=== PATIENT | female | born 1995 | race Caucasian/White ===

== ENCOUNTER 2022-10-16 16:50 | Emergency (ER) | payer OTHER, SELFPAY ==
[2022-10-16 17:00] VITALS: BP 134/80; BP 136/80; PULSE 100; PULSE 82; RESP 16; TEMP 36.6; O2SAT 100; O2SAT 98; BMI 27.4
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
[2022-10-16 17:59] LABS: MANUAL DIFF FLAG NO
[2022-10-16 18:03] LABS: Basophils Percent Auto 0.4 % (0-2); Eosinophils Absolute Auto 0.1 X10*3/uL (0.0-0.4); Eosinophils Percent Auto 1.2 % (0-4); Hematocrit 47.7 % (37.0-47.0); Hemoglobin 15.8 g/dl (12.0-16.0); Imm Gran Abs Auto 0.01 X10*3/uL (0.00-0.03); Imm Gran Pct Auto 0.1 % (0.0-0.4); Lymphocytes Absolute Auto 1.6 X10*3/uL (1.2-4.9); Lymphocytes Percent Auto 24.2 % (20-40); Mean Corpuscular HGB Conc 33.1 g/dl (31.0-35.0); Mean Corpuscular Hemoglobin 28.5 pg (27.0-33.0); Mean Corpuscular Volume 85.9 fL (80.0-98.0); Mean Platelet Volume 8.6 fL (9.4-12.3); Monocytes Absolute Auto 0.5 X10*3/uL (0.1-1.2); Monocytes Percent Auto 7.8 % (2-11); Neutrophils Absolute Auto 4.4 x10*3/uL (2.0-8.3); Neutrophils Percent Auto 66.3 % (45-73); Platelet Count 254 X10*3/uL (160-400); Red Blood Count 5.55 X10*6/uL (4.20-5.50); Red Cell Distribution Width 11.5 % (11.0-16.0); White Blood Count 6.7 X10*3/uL (4.8-10.8)
[2022-10-16 18:17] LABS: Alanine Aminotransferase 31 U/L (0-31); Albumin Level 4.9 g/dL (3.5-5.0); Alkaline Phosphatase 98 U/L (39-117); Anion Gap 12 (12-20); Aspartate Amino Transferase 26 U/L (5-31); Bilirubin Direct 0.2 mg/dL (0.0-0.5); Bilirubin Total 0.5 mg/dL (0.0-1.0); Blood Urea Nitrogen 12 mg/dL (9-16); Calcium 10.1 mg/dL (8.4-10.2); Carbon Dioxide 30 mmol/L (22-29); Chloride 102 mmol/L (96-108); Creatinine Clr Calc Pharmacy 97.6; Estimated Glomerular Filt Rate > 60; Glucose Random 104 mg/dL (60-115); Magnesium 2.4 mg/dL (1.6-2.6); Potassium 4.4 mmol/L (3.3-5.1); Sodium 140 mmol/L (135-145); Total Protein 7.7 g/dL (6.5-8.0)
== END 2022-10-16 18:29 | disposition home or self-care (01) ==
PROVIDERS: Physician Assistant; Emergency Provider Internal Medicine
DX: F41.1 Generalized anxiety disorder (principal); F43.0 Acute stress reaction; R51.9 Headache, unspecified; Z79.899 Other long term (current) drug therapy
CPT/HCPCS: 36415; 80048; 80076; 83735; 85025; 99282; 99283

== ENCOUNTER 2023-12-17 18:49 | Emergency (ER) | payer OTHER, SELFPAY ==
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
--- NOTE | 2023-12-17 19:07 | MHC.EDTECH ---
Patient ekg taken and was read by Provider .
== END 2023-12-17 20:43 | disposition left against medical advice (07) ==
PROVIDERS: Emergency Provider Emergency Medicine
DX: Z04.1 Encounter for examination and observation following transport accident (principal); R07.9 Chest pain, unspecified
CPT/HCPCS: 93005; 99282; 99283

== ENCOUNTER → 2023-12-17 18:56 | Outpatient (BNV) | payer OTHER, SELFPAY | PROVIDERS: Emergency Provider Emergency Medicine; Visit Provider Internal Medicine Cardiovascular Disease | DX: R07.9 Chest pain, unspecified (principal) | CPT/HCPCS: 93010 ==

== ENCOUNTER 2024-02-03 03:40 | Emergency (ER) | payer OTHER, SELFPAY | END 2024-02-03 06:22 | disposition left against medical advice (07) | LOC: HO.ED 04:16 | PROVIDERS: Emergency Provider Emergency Medicine; PCP Internal Medicine | DX: R68.89 Other general symptoms and signs (principal) ==

== ENCOUNTER 2024-02-09 03:31 | Emergency (ER) | payer OTHER, SELFPAY | END 2024-02-09 04:10 | disposition left against medical advice (07) | PROVIDERS: Emergency Provider Emergency Medicine | DX: Z53.21 Procedure and treatment not carried out due to patient leaving prior to being seen by health care provider (principal); G47.00 Insomnia, unspecified ==

== ENCOUNTER 2024-06-02 22:48 | Inpatient (IN) | payer OTHER, SELFPAY ==
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
[2024-06-02 22:50] VITALS: BMI 24.8
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
--- NOTE | 2024-06-03 06:17 | PC.NURSE ---
Patient slept through the night, no distress observed/reported, patient refused to provide urine sample and blood draw due to her paranoia, patient was sectioned by PD, pending care team assessment, will continue to monitor
--- NOTE | 2024-06-03 07:11 | PC.NURSE ---
Assumed care of patient at 0645, patient appears to be sleeping, no apparent distress noted. Per night RN, patient non-cooperative with record changer assembler and treatment process. Pending lab work and CARE team evaluation.
--- NOTE | 2024-06-03 08:11 | PC.NURSE ---
Patient refusing blood work and urine sample, stating that she needs to go home and we need to lift the 12 hour hold
--- NOTE | 2024-06-03 08:38 | HE.PHANOTE ---
RE: METHADONE DOSING Last dose of methadone 28 mg was given on 06/01/24@1121 at [facility] [address] [phone] per RUPALI Ocampo.
[2024-06-03 08:59] LABS: Appearance Urine Turbid; Color Urine Dark Yellow; Glucose Urine UA Negative (Negative); Leukocyte Esterase Urine Small (1+) (Negative); Nitrite Urine Negative (Negative); Specific Gravity - Urine >= 1.030 (1.005-1.025); UMIC TRIGGER UACC YES; Urine Blood Negative (Negative); Urine Ketones 15 mg/dL (Negative); Urine Protein 30 (1+) mg/dL (Neg-Trace)
[2024-06-03 09:06] LABS: Bacteria Urine 4+ (None Seen); Calcium Oxalate Crystals Urine Present; RBC Urine 0-2 /HPF (0-2); Squamous Epithelial Cell Urine >20 /HPF (0-2); UACC Culture Trigger YES; WBC Urine 21-50 /HPF (0-5)
[2024-06-03 09:14] LABS: Amphetamine Screen Urine Not Detected (Not Detect); Barbiturates, Urine Not Detected (Not Detect); Benzodiazepines Screen Urine Not Detected (Not Detect); Buprenorphine Scr Not Detected (Not Detect); Cannabinoid Screen Urine Not Detected (Not Detect); Cocaine Screen Urine POSITIVE (Not Detect); Fentanyl, urine Not Detected (Not Detect); Methadone Screen, Urine Positive (Not Detect); Opiate Screen Urine Not Detected (Not Detect); Oxycodone Screen Urine Not Detected (Not Detect); Phencyclidine Screen Urine Not Detected (Not Detect)
[2024-06-03 09:33] LABS: MANUAL DIFF FLAG NO
[2024-06-03 09:34] LABS: Basophils Percent Auto 0.4 % (0-2); Eosinophils Absolute Auto 0.1 X10*3/uL (0.0-0.4); Eosinophils Percent Auto 1.7 % (0-4); Hematocrit 43.5 % (37.0-47.0); Imm Gran Abs Auto 0.02 X10*3/uL (0.00-0.03); Imm Gran Pct Auto 0.3 % (0.0-0.4); Lymphocytes Absolute Auto 1.9 X10*3/uL (1.2-4.9); Lymphocytes Percent Auto 27.5 % (20-40); Mean Corpuscular HGB Conc 34.5 g/dl (31.0-35.0); Mean Corpuscular Hemoglobin 29.9 pg (27.0-33.0); Mean Corpuscular Volume 86.8 fL (80.0-98.0); Mean Platelet Volume 8.7 fL (9.4-12.3); Monocytes Absolute Auto 0.6 X10*3/uL (0.1-1.2); Neutrophils Absolute Auto 4.2 x10*3/uL (2.0-8.3); Neutrophils Percent Auto 61.1 % (45-73); Platelet Count 273 X10*3/uL (160-400); Red Blood Count 5.01 X10*6/uL (4.20-5.50); Red Cell Distribution Width 11.9 % (11.0-16.0); White Blood Count 6.9 X10*3/uL (4.8-10.8)
--- NOTE | 2024-06-03 09:51 | PC.NURSE ---
This RN spoke with mom who is encouraging patient to get CT scan. Mom aware that patient has been refusing treatment. Mom also aware that patient will be going inpatient
[2024-06-03 09:56] LABS: Acetaminophen LAB < 3 mcg/mL (<30); Salicylate < 5.0 mg/dL (15-30)
[2024-06-03 10:12] LABS: Alanine Aminotransferase 18 U/L (0-31); Albumin Level 4.8 g/dL (3.5-5.0); Alkaline Phosphatase 74 U/L (39-117); Anion Gap 10 (12-20); Aspartate Amino Transferase 26 U/L (5-31); Bilirubin Direct 0.3 mg/dL (0.0-0.5); Bilirubin Total 0.7 mg/dL (0.0-1.0); Blood Urea Nitrogen 12 mg/dL (9-16); Calcium 9.8 mg/dL (8.4-10.2); Carbon Dioxide 30 mmol/L (22-29); Chloride 106 mmol/L (96-108); Creatinine Clr Calc Pharmacy 90.3; Estimated Glomerular Filt Rate > 60; Ethanol < 10 mg/dL; Glucose Random 94 mg/dL (60-115); Magnesium 2.6 mg/dL (1.6-2.6); Potassium 3.5 mmol/L (3.3-5.1); Sodium 142 mmol/L (135-145); Total Protein 7.5 g/dL (6.5-8.0)
[2024-06-03 10:24] LABS: HCG Quantitative < 2 mIU/mL; TSH reflex Free T4 0.49 uIU/mL (0.32-4.0)
[2024-06-03] MEDS: methADONE HCl 20 MG/2 ML ORAL.CONC 28 MG PO (10:49)
[2024-06-03] MEDS: Nicotine 21 MG PATCH.TD24 TRANSDERMA (10:49)
--- NOTE | 2024-06-03 11:28 | ECG_ITS ---
Test Reason : clearence Blood Pressure : / mmHG Vent. Rate : 061 BPM Atrial Rate : 061 BPM P-R Int : 156 ms QRS Dur : 084 ms QT Int : 446 ms P-R-T Axes : 050 079 053 degrees QTc Int : 448 ms Normal sinus rhythm Normal ECG When compared with ECG of 17-DEC-2023 19:04, Nonspecific T wave abnormality no longer evident in Anterior leads Referred By: Kiara Nunes Electronically Signed By:Gibran Toribio
--- NOTE | 2024-06-03 11:30 | PC.NURSE ---
Inpatient RN called pod, asked if EKG had been done. Per report from previous RN Mela, patient had been refusing EKG. Inpatient RN made aware, order placed for staff to obtain once patient consents.
--- NOTE | 2024-06-03 13:12 | PC.NURSE ---
RN to RN phone report given to Sheryl, all questions answered, patient to be transported upstairs with security.
[2024-06-03 13:25] VITALS: BP 117/73; PULSE 67; RESP 14; TEMP 36.9; O2SAT 97
[2024-06-03 13:30] VITALS: BMI 22.8
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
[2024-06-03 20:00] VITALS: BP 116/70; PULSE 59; RESP 16; TEMP 36.5; O2SAT 99
[2024-06-04] MEDS: methADONE HCl 20 MG/2 ML ORAL.CONC 28 MG PO (07:39)
[2024-06-04 07:54] VITALS: BP 127/73; PULSE 65; RESP 16; TEMP 36; O2SAT 97
[2024-06-04 08:35] LABS: Estimated Average Glucose 91 mg/dL; Hemoglobin A1c % 4.8 % (<6.0)
[2024-06-04 08:45] LABS: Cholesterol 110 mg/dL (<200); HDL Cholesterol 45 mg/dL (>40); LDL Cholesterol Calculated 55 mg/dL (<100); Magnesium 2.5 mg/dL (1.6-2.6); Triglycerides 54 mg/dL (<150)
[2024-06-04 09:02] LABS: Free T4 (Free Thyroxine) 1.09 ng/dL (0.71-1.85)
[2024-06-04 09:11] LABS: Folate 11.8 ng/mL (> or = 4.0); Vitamin B12 513 pg/mL (200-900)
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
[2024-06-04 20:00] VITALS: BP 121/73; PULSE 68; RESP 16; TEMP 36.7; O2SAT 97
[2024-06-05] MEDS: methADONE HCl 20 MG/2 ML ORAL.CONC 28 MG PO (07:44)
[2024-06-05 08:00] VITALS: BP 145/70; PULSE 80; RESP 16; TEMP 36.4; O2SAT 98
--- NOTE | 2024-06-05 08:40 | HO.PSYCHPN ---
Subjective Subjective Date of Service: 06/05/24 Reason For Visit: Psychosis NOS Subjective Notes: Coe Warning, Conditional Voluntary and 3 Day Interim History: Met with patient. Discussed with nursing. Patient did visit with father today. Very paranoid and guarded. Limited engagement with automobile and property underwriter. Did want to sign a three-day notice. However again ambivalent, but verbally express this clearly. Still does not want medications. Medication Compliance: No Side effects from medications: No Attending Groups: No Review of Systems Acute medical concerns: No Review of Systems Review of Systems Unremarkable Mental Status Exam Mental Status Exam Narrative: hospital clothing. Very guarded and suspicious. Flat affect. Denies depression, SI, HI, hallucinations or feeling paranoid. Diagnostics Vital Signs (24Hr): Vital Signs - 24 hr 06/04/24 20:00 06/05/24 08:00 Temperature 98.0 F 97.5 F Pulse Rate 68 80 Respiratory Rate 16 16 Blood Pressure 121/73 145/70 H Pulse Oximetry 97 98 Oxygen Delivery Method Room Air Room Air BMI result Body Mass Index 22.8 Labs 06/03/24 09:07 06/03/24 09:07 Labs: Laboratory Results - last 48 hr 06/03/24 06/03/24 06/04/24 08:50 09:07 07:53 WBC 6.9 RBC 5.01 Hgb 15.0 Hct 43.5 MCV 86.8 MCH 29.9 MCHC 34.5 RDW 11.9 Plt Count 273 MPV 8.7 L Immature Gran % (Auto) 0.3 Neut % (Auto) 61.1 Lymph % (Auto) 27.5 [place] % (Auto) 9.0 Eos % (Auto) 1.7 Baso % (Auto) 0.4 Lymph # (Auto) 1.9 [place] # (Auto) 0.6 Eos # (Auto) 0.1 Baso # (Auto) 0.0 Abs Immat Gran (auto) 0.02 Absolute Neuts (auto) 4.2 Absolute Nucleated RBC 0.000 Nucleated RBC % (auto) 0.0 Sodium 142 Potassium 3.5 Chloride 106 Carbon Dioxide 30 H Anion Gap 10 L BUN 12 Creatinine 0.81 Estim Creat Clear Calc 90.3 Estimated GFR > 60 Random Glucose 94 Estimat Average Glucose 91 Hemoglobin A1c % 4.8 Calcium 9.8 Magnesium 2.6 2.5 Total Bilirubin 0.7 Direct Bilirubin 0.3 AST 26 ALT 18 Alkaline Phosphatase 74 Total Protein 7.5 Albumin 4.8 Triglycerides 54 Cholesterol 110 LDL Cholesterol, Calc 55 HDL Cholesterol 45 Vitamin B12 513 Folate 11.8 TSH 0.49 0.90 Free T4 1.09 Beta HCG, Quant < 2 Urine Color Dark Yellow Urine Appearance Turbid Urine pH 6.0 Ur Specific [place] >= 1.030 H Urine Protein 30 (1+) H Urine Glucose (UA) Negative Urine Ketones 15 Urine Blood Negative Urine Nitrite Negative Ur Leukocyte Esterase Small (1+) H Urine RBC 0-2 Urine WBC 21-50 H Ur Squamous Epith Cells >20 Calcium Oxalate Crystal Present Urine Bacteria 4+ Hyaline Casts 3-5 Salicylates < 5.0 L Urine Opiates Screen Not Detected Ur Buprenorphine Scrn Not Detected Ur Oxycodone Screen Not Detected Urine Methadone Screen Positive H Urine Fentanyl Screen Not Detected Acetaminophen < 3 Ur Barbiturates Screen Not Detected Ur Phencyclidine Scrn Not Detected Ur Amphetamines Screen Not Detected U Benzodiazepines Scrn Not Detected Urine Cocaine Screen POSITIVE H U Marijuana (THC) Screen Not Detected Ethyl Alcohol < 10 Medications Medications Current Medications Acetaminophen (Acetaminophen 325 Mg Tablet) 650 mg PO Q6H PRN PRN Reason: Headache/Pain Mild Scale (1-3) Al Hydroxide/Mg Hydroxide (Magnesium Hydrox/Alum Hydrox 30 Ml Oral.Susp) 30 ml PO Q6H PRN PRN Reason: Heartburn/Nausea Albuterol Sulfate (Albuterol Sulfate 90 Mcg 8 Gm Inhaler) 2 puff INHALE Q4H PRN PRN Reason: wheezing Clonidine HCl (Clonidine Hcl 0.1 Mg Tablet) 0.1 mg PO BID PRN; Protocol PRN Reason: withdrawal, anxiety Hydroxyzine HCl (Hydroxyzine Hcl 25 Mg Tablet) 25 mg PO Q6H PRN PRN Reason: Anxiety Lorazepam (Lorazepam 1 Mg Tablet) 1 mg PO Q4H PRN PRN Reason: anxiety, agitation Magnesium Hydroxide (Milk Of Magnesia 30 Ml Oral.Susp) 30 ml PO DAILY PRN PRN Reason: Constipation Methadone HCl (Methadone Hcl 20 Mg/2 Ml Oral.Conc) 28 mg PO DAILY [facility] Last Admin: 06/05/24 07:44 Dose: 28 mg Multivitamins/Vitamin C (Multivitamin Tablet) 1 tab PO DAILY [facility] Last Admin: 06/04/24 08:33 Dose: Not Given Nicotine (Nicotine 21 Mg Patch.Td24) 21 mg TRANSDERMA DAILY PRN PRN Reason: Nicotine Cravings Nicotine Polacrilex (Nicotine Polacrilex 2 Mg Gum) 4 mg BUCCAL Q2H PRN PRN Reason: Nicotine Cravings Olanzapine (Olanzapine 5 Mg Tablet) 5 mg PO TID PRN PRN Reason: psychosis, agitation Trazodone HCl (Trazodone Hcl 50 Mg Tablet) 50 mg PO BEDTIME MRX1 PRN PRN Reason: Insomnia Allergies Allergies Allergy/AdvReac Type Severity Reaction Status Date / Time No Known Allergies Allergy Verified 06/02/24 22:58 [No Known Allergies*] Assessment & Plan Assessment & Plan (1) Unspecified psychosis: Status: Acute Code(s): F29 - Unspecified psychosis not due to a substance or known physiological condition (2) Cocaine use: Status: Acute Code(s): F14.90 - Cocaine use, unspecified, uncomplicated Plan patient appears to experience recent psychotic symptoms, leading to ED evaluation and current admission. Is very guarded and appears paranoid. Unclear what factor cocaine use may have been, as patient reports last using this 1 week ago. Adamant not having a mental health history, denies all symptoms and does not want any medications. Will maintain methadone 28 mg as part of a tapering dose with her outpatient program. 06/05/2024: Three-day notice in place. Declining medications. Reason for continued inpatient stay Substantial Risk for: inability to function Time Spent With Patient Time: Total time managing care of this patient today ____ minutes.
[2024-06-05 08:49] VITALS: BP 117/68
--- NOTE | 2024-06-05 11:45 | PC.NURSE ---
pt verbally expressed intention to leave facility but is unable to comprehend the legal process to do so. Verbal 3 day noticed signed by this nurse on patients behalf. Provider, SW and UR notified via voicemail.
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
[2024-06-05 19:40] VITALS: BP 120/71; PULSE 62; TEMP 36.4; O2SAT 99
[2024-06-06 08:00] VITALS: BP 115/68; PULSE 77; RESP 16; TEMP 36.4; O2SAT 97
[2024-06-06] MEDS: methADONE HCl 20 MG/2 ML ORAL.CONC 28 MG PO (08:02)
--- NOTE | 2024-06-06 16:23 | P.PNPSI_ITS ---
Subjective Subjective Date of Service: 06/06/24 Reason For Visit: Psychosis NOS Subjective Notes: Conditional Voluntary and 3 Day Healthcare Proxy: No Guardianship: No Medical Problems Affecting Mental Status: No Interim History: Call from pt's mother who reports she now has temporary guardianship. Will meet 06/07 1pm Met with pt. She asks that we call her dad- he will come to get me . Fathers phone is on voice mail. Discussed mothers news with pt. Pt will attend 1pm meeting tomorrow. Guarded, distant, paranoid, appears fearful at times Medication Compliance: No Side effects from medications: No Attending Groups: No Review of Systems Acute medical concerns: No Medical Review of Systems: unchanged Review of Systems Review of Systems Yes all other systems are reviewed and are negative (denies) Mental Status Exam Mental Status Exam Patient Appearance: Appropriate Patient Orientation: Person and Place Level of Consciousness: Alert Patient Behavior: Guarded and Suspicious Mood Description: Constricted Affect Description: Constricted Patient Cognition Impaired: No Ability to Follow Directions: Fair Speech Pattern: Spontaneous Speech Memory Description: Episodic Impaired Delusions: Paranoid Ideation and Present Thought Process: Distracted Judgement: Poor Diagnostics Vital Signs (24Hr): Vital Signs - 24 hr 06/05/24 19:40 06/06/24 08:00 Temperature 97.5 F 97.6 F Pulse Rate 62 77 Respiratory Rate 16 Blood Pressure 120/71 115/68 Pulse Oximetry 99 97 Oxygen Delivery Method Room Air Room Air BMI result Body Mass Index 22.8 Labs 06/03/24 09:07 06/03/24 09:07 Medications Medications Current Medications Acetaminophen (Acetaminophen 325 Mg Tablet) 650 mg PO Q6H PRN PRN Reason: Headache/Pain Mild Scale (1-3) Al Hydroxide/Mg Hydroxide (Magnesium Hydrox/Alum Hydrox 30 Ml Oral.Susp) 30 ml PO Q6H PRN PRN Reason: Heartburn/Nausea Albuterol Sulfate (Albuterol Sulfate 90 Mcg 8 Gm Inhaler) 2 puff INHALE Q4H PRN PRN Reason: wheezing Clonidine HCl (Clonidine Hcl 0.1 Mg Tablet) 0.1 mg PO BID PRN; Protocol PRN Reason: withdrawal, anxiety Hydroxyzine HCl (Hydroxyzine Hcl 25 Mg Tablet) 25 mg PO Q6H PRN PRN Reason: Anxiety Lorazepam (Lorazepam 1 Mg Tablet) 1 mg PO Q4H PRN PRN Reason: anxiety, agitation Magnesium Hydroxide (Milk Of Magnesia 30 Ml Oral.Susp) 30 ml PO DAILY PRN PRN Reason: Constipation Methadone HCl (Methadone Hcl 20 Mg/2 Ml Oral.Conc) 28 mg PO DAILY [facility] Last Admin: 06/06/24 08:02 Dose: 28 mg Multivitamins/Vitamin C (Multivitamin Tablet) 1 tab PO DAILY [facility] Last Admin: 06/06/24 08:46 Dose: Not Given Nicotine (Nicotine 21 Mg Patch.Td24) 21 mg TRANSDERMA DAILY PRN PRN Reason: Nicotine Cravings Nicotine Polacrilex (Nicotine Polacrilex 2 Mg Gum) 4 mg BUCCAL Q2H PRN PRN Reason: Nicotine Cravings Olanzapine (Olanzapine 5 Mg Tablet) 5 mg PO TID PRN PRN Reason: psychosis, agitation Trazodone HCl (Trazodone Hcl 50 Mg Tablet) 50 mg PO BEDTIME MRX1 PRN PRN Reason: Insomnia Allergies Allergies Allergy/AdvReac Type Severity Reaction Status Date / Time No Known Allergies Allergy Verified 06/02/24 22:58 [No Known Allergies*] Assessment & Plan Assessment & Plan (1) Unspecified psychosis: Status: Acute Code(s): F29 - Unspecified psychosis not due to a substance or known physiological condition (2) Cocaine use: Status: Acute Code(s): F14.90 - Cocaine use, unspecified, uncomplicated Plan patient appears to experience recent psychotic symptoms, leading to ED evaluation and current admission. Is very guarded and appears paranoid. Unclear what factor cocaine use may have been, as patient reports last using this 1 week ago. Adamant not having a mental health history, denies all symptoms and does not want any medications. Will maintain methadone 28 mg as part of a tapering dose with her outpatient program. 06/05/2024: Three-day notice in place. Declining medications. 06/06/24: Family meeting with mother 06/07 1pm Pt continues to decline treatment. Reason for continued inpatient stay Substantial Risk for: rapid decompensation Time Spent With Patient Time: Total time managing care of this patient today ____ minutes.
[2024-06-07] MEDS: methADONE HCl 20 MG/2 ML ORAL.CONC 28 MG PO (07:54)
[2024-06-07 08:04] VITALS: BP 120/73; PULSE 64; RESP 16; TEMP 36.4; O2SAT 99
--- NOTE | 2024-06-07 11:49 | HO.PSYCHPN ---
Subjective Subjective Reason For Visit: Psychosis NOS Diagnostics Vital Signs (24Hr): Vital Signs - 24 hr 06/07/24 08:04 Temperature 97.5 F Pulse Rate 64 Respiratory Rate 16 Blood Pressure 120/73 Pulse Oximetry 99 Oxygen Delivery Method Room Air BMI result Body Mass Index 22.8 Labs 06/03/24 09:07 06/03/24 09:07 Medications Medications Current Medications Acetaminophen (Acetaminophen 325 Mg Tablet) 650 mg PO Q6H PRN PRN Reason: Headache/Pain Mild Scale (1-3) Al Hydroxide/Mg Hydroxide (Magnesium Hydrox/Alum Hydrox 30 Ml Oral.Susp) 30 ml PO Q6H PRN PRN Reason: Heartburn/Nausea Albuterol Sulfate (Albuterol Sulfate 90 Mcg 8 Gm Inhaler) 2 puff INHALE Q4H PRN PRN Reason: wheezing Clonidine HCl (Clonidine Hcl 0.1 Mg Tablet) 0.1 mg PO BID PRN; Protocol PRN Reason: withdrawal, anxiety Hydroxyzine HCl (Hydroxyzine Hcl 25 Mg Tablet) 25 mg PO Q6H PRN PRN Reason: Anxiety Lorazepam (Lorazepam 1 Mg Tablet) 1 mg PO Q4H PRN PRN Reason: anxiety, agitation Magnesium Hydroxide (Milk Of Magnesia 30 Ml Oral.Susp) 30 ml PO DAILY PRN PRN Reason: Constipation Methadone HCl (Methadone Hcl 20 Mg/2 Ml Oral.Conc) 28 mg PO DAILY [facility] Last Admin: 06/07/24 07:54 Dose: 28 mg Multivitamins/Vitamin C (Multivitamin Tablet) 1 tab PO DAILY [facility] Last Admin: 06/07/24 08:06 Dose: Not Given Nicotine (Nicotine 21 Mg Patch.Td24) 21 mg TRANSDERMA DAILY PRN PRN Reason: Nicotine Cravings Nicotine Polacrilex (Nicotine Polacrilex 2 Mg Gum) 4 mg BUCCAL Q2H PRN PRN Reason: Nicotine Cravings Olanzapine (Olanzapine 5 Mg Tablet) 5 mg PO TID PRN PRN Reason: psychosis, agitation Trazodone HCl (Trazodone Hcl 50 Mg Tablet) 50 mg PO BEDTIME MRX1 PRN PRN Reason: Insomnia Allergies Allergies Allergy/AdvReac Type Severity Reaction Status Date / Time No Known Allergies Allergy Verified 06/02/24 22:58 [No Known Allergies*] Assessment & Plan Assessment & Plan (1) Unspecified psychosis: Status: Acute Code(s): F29 - Unspecified psychosis not due to a substance or known physiological condition (2) Cocaine use: Status: Acute Code(s): F14.90 - Cocaine use, unspecified, uncomplicated Plan patient appears to experience recent psychotic symptoms, leading to ED evaluation and current admission. Is very guarded and appears paranoid. Unclear what factor cocaine use may have been, as patient reports last using this 1 week ago. Adamant not having a mental health history, denies all symptoms and does not want any medications. Will maintain methadone 28 mg as part of a tapering dose with her outpatient program. 06/05/2024: Three-day notice in place. Declining medications. 06/06/24: Family meeting with mother 06/07 1pm Pt continues to decline treatment. Time Spent With Patient Time: Total time managing care of this patient today ____ minutes.
--- NOTE | 2024-06-07 15:47 | P.DS_ITS ---
DS: Providers Provider Date of Service: 06/07/24 Date of admission: 06/03/24 12:29 Date of discharge: 06/07/24 Primary care physician: Unknown Physician Admitting clinician: Kory Spencer Attending physician on admission: Kory Spencer Attending physician on discharge: Drew Cartagena Discharging clinician: Su Pierre DS: Diagnosis Discharge Diagnosis (1) Unspecified psychosis: Status: Acute (2) Cocaine use: Status: Acute DS: Medications Discharge Medications Home Medications: Home Medications ?Medication ?Instructions ?Recorded ?Confirmed albuterol sulfate 90 mcg/actuation 2 puff inhalation Q4H PRN wheezing 06/02/24 06/02/24 aerosol inhaler (Ventolin HFA) methadone 10 mg/mL oral 28 mg PO DAILY 06/03/24 06/03/24 concentrate (Methadone Intensol) Mental Status Exam Mental Status Exam Patient Appearance: Appropriate Patient Orientation: Person and Place Level of Consciousness: Alert Patient Behavior: Guarded and Suspicious Mood Description: Constricted Affect Description: Constricted Patient Cognition Impaired: No Ability to Follow Directions: Fair Speech Pattern: Spontaneous Speech Memory Description: Episodic Impaired Delusions: Paranoid Ideation and Present Thought Process: Distracted Judgement: Poor Data Data Completed and Pending Completed studies during hospitalization [Text1]: 06/03/24 06/03/24 06/04/24 08:50 09:07 07:53 WBC 6.9 RBC 5.01 Hgb 15.0 Hct 43.5 MCV 86.8 MCH 29.9 MCHC 34.5 RDW 11.9 Plt Count 273 MPV 8.7 L Immature Gran % (Auto) 0.3 Neut % (Auto) 61.1 Lymph % (Auto) 27.5 [place] % (Auto) 9.0 Eos % (Auto) 1.7 Baso % (Auto) 0.4 Lymph # (Auto) 1.9 [place] # (Auto) 0.6 Eos # (Auto) 0.1 Baso # (Auto) 0.0 Abs Immat Gran (auto) 0.02 Absolute Neuts (auto) 4.2 Absolute Nucleated RBC 0.000 Nucleated RBC % (auto) 0.0 Sodium 142 Potassium 3.5 Chloride 106 Carbon Dioxide 30 H Anion Gap 10 L BUN 12 Creatinine 0.81 Estim Creat Clear Calc 90.3 Estimated GFR > 60 Random Glucose 94 Estimat Average Glucose 91 Hemoglobin A1c % 4.8 Calcium 9.8 Magnesium 2.6 2.5 Total Bilirubin 0.7 Direct Bilirubin 0.3 AST 26 ALT 18 Alkaline Phosphatase 74 Total Protein 7.5 Albumin 4.8 Triglycerides 54 Cholesterol 110 LDL Cholesterol, Calc 55 HDL Cholesterol 45 Vitamin B12 513 Folate 11.8 TSH 0.49 0.90 Free T4 1.09 Beta HCG, Quant < 2 Urine Color Dark Yellow Urine Appearance Turbid Urine pH 6.0 Ur Specific [place] >= 1.030 H Urine Protein 30 (1+) H Urine Glucose (UA) Negative Urine Ketones 15 Urine Blood Negative Urine Nitrite Negative Ur Leukocyte Esterase Small (1+) H Urine RBC 0-2 Urine WBC 21-50 H Ur Squamous Epith Cells >20 Calcium Oxalate Crystal Present Urine Bacteria 4+ Hyaline Casts 3-5 Salicylates < 5.0 L Urine Opiates Screen Not Detected Ur Buprenorphine Scrn Not Detected Ur Oxycodone Screen Not Detected Urine Methadone Screen Positive H Urine Fentanyl Screen Not Detected Acetaminophen < 3 Ur Barbiturates Screen Not Detected Ur Phencyclidine Scrn Not Detected Ur Amphetamines Screen Not Detected U Benzodiazepines Scrn Not Detected Urine Cocaine Screen POSITIVE H U Marijuana (THC) Screen Not Detected Ethyl Alcohol < 10 06/03/24 Unknown Urine clean catch - Clean Catch Midstream Urine Culture - Final Imaging Diagnostic Imaging Impressions Head CT 06/07/24 13:45 IMPRESSION: 1. No acute intracranial abnormality. 2. Borderline right cerebellar ectopia with preserved normal rounded morphology. 3. Partially imaged anteroinferior nasal septal perforation, which may be seen in the setting of prior trauma, cocaine abuse, or chronic inflammatory/granulomatous conditions. Secretions in the left nasal cavity and nasopharynx. Prominent rightward nasal septal deviation with a large bony spur impinging upon the right inferior and middle nasal turbinates as well as right lateral nasal cavity wall and narrowing the right internal nasal valve anteriorly. DS: Summary Hospital Course Hospital Course: Admission to adult psychiatry for exacerbation of psychosis and cocaine use disorder. Pt refused all interventions. Family work was completed with education regarding resources. Family will take pt home, at her request and their agreement. She agreed to CAT Scan prior to discharge per mother's request and will follow up with [facility] providers she reports after discharge. Status at Discharge Functional status at discharge: independent ambulation Overall status at discharge: patient is not back to baseline Time Spent with Patient Time attestation: Total time managing care of this patient today ____ minutes. Time spent: Less than 30 minutes Discharge Plan Discharge Anticipated Discharge Date/Time: 06/07/24 16:00 Patient Disposition: Home, Self-Care Discharge Diagnosis: Psychosis, NOS Cocaine Abuse Referrals: Physician,Unknown J [Primary Care Provider] - 1 Week Discharge Medications: Continued albuterol sulfate [Ventolin HFA] 90 mcg/actuation HFA aerosol inhaler 2 puff inhalation Q4H PRN (Reason: wheezing) methadone [Methadone Intensol] 10 mg/mL Concentrate 28 mg PO DAILY Discharge Orders: Discharge Order (Routine); Ordered 06/07/24 Ordered By: Su Pierre Diet: Advance to usual diet Activity on Discharge: As tolerated Stand Alone Forms: Patient Portal Discharge page, Community Support Print Language: Amharic Care Plan Goals: Mood and Behavioral Stabilization Health Concerns: Mood and Behavioral Stabilization Plan of Treatment: Call and/or return as needed. Violette declines medications and referrals at this time Assessment: Discharge to parents care on a three day notice of intent. No SI/HI/AH/VH, sx of psychosis or yann Discharge Date/Time: 06/07/24 14:38
== END 2024-06-07 14:38 | disposition home or self-care (01) | DRG 751 ==
LOC: HO.ED 06-03 01:41 → HO.PM5 06-03 12:41
PROVIDERS: Admitting Provider Clinical Nurse Specialist Psychiatric/Mental Health, Adult; Emergency Provider Emergency Medicine; Visit Provider Clinical Nurse Specialist Psychiatric/Mental Health, Adult
DX: F29 Unspecified psychosis not due to a substance or known physiological condition (principal); F11.20 Opioid dependence, uncomplicated; F17.210 Nicotine dependence, cigarettes, uncomplicated; F14.10 Cocaine abuse, uncomplicated; Z71.6 Tobacco abuse counseling; Z79.899 Other long term (current) drug therapy
CPT/HCPCS: 36415; 70450; 80048; 80061; 80076; 80143; 80179; 80307; 81001; 81003; 82607; 82746; 83036; 83735; 84439; 84443; 84702; 85025; 87086; 93005; 99285; S9485

== ENCOUNTER → 2024-06-03 11:28 | Outpatient (BNV) | payer OTHER, SELFPAY | PROVIDERS: Admitting Provider Clinical Nurse Specialist Psychiatric/Mental Health, Adult; Emergency Provider Emergency Medicine; Visit Provider Internal Medicine Cardiovascular Disease | DX: Z01.818 Encounter for other preprocedural examination (principal) | CPT/HCPCS: 93010 ==

== ENCOUNTER → 2024-06-03 12:29 | Outpatient (BNV) | payer OTHER, SELFPAY | PROVIDERS: Admitting Provider Clinical Nurse Specialist Psychiatric/Mental Health, Adult; Emergency Provider Emergency Medicine; Visit Provider Psychiatry & Neurology Psychiatry | DX: F29 Unspecified psychosis not due to a substance or known physiological condition (principal); F14.90 Cocaine use, unspecified, uncomplicated | CPT/HCPCS: 99222; 99231; 99232; 99238 ==

== ENCOUNTER 2024-06-29 15:25 | Inpatient (IN) | payer OTHER, SELFPAY ==
--- NOTE | ~2024-06-29 | MR_ITS ---
EXAMINATION: MR BRAIN WITHOUT CONTRAST CLINICAL INFORMATION: Mental status changes COMPARISON: CT head June 07, 2024 TECHNIQUE: MRI of the brain was obtained using routine sequences without contrast. FINDINGS: No acute infarct. No acute intracranial hemorrhage or extra-axial fluid collection. The ventricles and sulci are normal in size and configuration without significant volume loss or hydrocephalus. No parenchymal signal abnormality. No mass lesion, mass effect, or herniation pattern. Normal intracranial arterial and dural venous sinus flow voids. Normal appearance of the midline structures. The orbits are grossly unremarkable. Redemonstrated perforation of the anteroinferior nasal septum and some secretions within the left inferior left nasal cavity. Rightward nasal septal deviation with bony spur impinging upon the right inferior nasal turbinate and right lateral nasal cavity wall. Slightly reduced T1 marrow signal within the cervical spinal column which may be a normal finding in a young patient of this age however may reflect red marrow reconversion related to anemia or other pathology that can be correlated with CBC. MR/MR head/brain wo/w con IMPRESSION: 1. No acute intracranial abnormality. 2. Redemonstrated perforation of the nasal septum. Rightward nasal septal deviation with bony spur impinging upon the right inferior nasal turbinate and right lateral nasal cavity wall. 3. Slightly reduced T1 marrow signal within the cervical spinal column which may be a normal finding in a young patient of this age however may reflect red marrow reconversion related to anemia or other pathology that can be correlated with CBC. Electronically signed by: Jazmin Rausch MD 07/01/2024 11:44 PM EDT
[2024-06-29 15:38] VITALS: BP 112/76; BP 120/75; PULSE 61; PULSE 80; RESP 14; TEMP 36.6; O2SAT 98; BMI 23.4
[2024-06-29 15:42] VITALS: RESP 14
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
[2024-06-29 15:54] LABS: Appearance Urine Turbid; Color Urine Dark Yellow; Glucose Urine UA Negative (Negative); Leukocyte Esterase Urine Small (1+) (Negative); Nitrite Urine Negative (Negative); PH 5.5 (5.0-9.0); Specific Gravity - Urine >= 1.030 (1.005-1.025); UMIC TRIGGER UACC YES; UPreg QC Valid YES; Urine Blood Moderate (2+) (Negative); Urine Ketones Trace mg/dL (Negative); Urine Pregnancy NEGATIVE (NEGATIVE); Urine Protein 100 (2+) mg/dL (Neg-Trace)
[2024-06-29 16:01] LABS: Amphetamine Screen Urine Not Detected (Not Detect); Barbiturates, Urine Not Detected (Not Detect); Benzodiazepines Screen Urine Not Detected (Not Detect); Buprenorphine Scr Not Detected (Not Detect); Cannabinoid Screen Urine Not Detected (Not Detect); Cocaine Screen Urine POSITIVE (Not Detect); Fentanyl, urine Not Detected (Not Detect); Methadone Screen, Urine Positive (Not Detect); Opiate Screen Urine Not Detected (Not Detect); Oxycodone Screen Urine Not Detected (Not Detect); Phencyclidine Screen Urine Not Detected (Not Detect)
[2024-06-29 16:05] LABS: Bacteria Urine 4+ (None Seen); Squamous Epithelial Cell Urine >20 /HPF (0-2); UACC Culture Trigger YES
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
--- NOTE | 2024-06-29 17:37 | PC.NURSE ---
pt refusing lab work, requesting to leave. this RN educated patient about S12a, pt continues to refuse stating I am not on a section 12, i can leave
--- NOTE | 2024-06-29 17:43 | PC.NURSE ---
Pts mom's # [phone] Pts dad's # [phone]
--- NOTE | 2024-06-29 18:18 | HE.PHANOTE ---
methadone verified 06/29/24 [facility] [place] dose is 28 mg
[2024-06-29 20:54] LABS: MANUAL DIFF FLAG NO
[2024-06-29 20:57] LABS: Basophils Percent Auto 0.5 % (0-2); Eosinophils Absolute Auto 0.1 X10*3/uL (0.0-0.4); Eosinophils Percent Auto 1.3 % (0-4); Hematocrit 39.7 % (37.0-47.0); Hemoglobin 13.8 g/dl (12.0-16.0); Imm Gran Abs Auto 0.01 X10*3/uL (0.00-0.03); Imm Gran Pct Auto 0.2 % (0.0-0.4); Lymphocytes Absolute Auto 1.7 X10*3/uL (1.2-4.9); Lymphocytes Percent Auto 31.3 % (20-40); Mean Corpuscular HGB Conc 34.8 g/dl (31.0-35.0); Mean Corpuscular Hemoglobin 30.4 pg (27.0-33.0); Mean Corpuscular Volume 87.4 fL (80.0-98.0); Mean Platelet Volume 8.7 fL (9.4-12.3); Monocytes Absolute Auto 0.5 X10*3/uL (0.1-1.2); Monocytes Percent Auto 8.1 % (2-11); Neutrophils Absolute Auto 3.3 x10*3/uL (2.0-8.3); Neutrophils Percent Auto 58.6 % (45-73); Platelet Count 209 X10*3/uL (160-400); Red Blood Count 4.54 X10*6/uL (4.20-5.50); Red Cell Distribution Width 11.8 % (11.0-16.0); White Blood Count 5.6 X10*3/uL (4.8-10.8)
[2024-06-29 21:17] LABS: Alanine Aminotransferase 11 U/L (0-31); Albumin Level 4.2 g/dL (3.5-5.0); Alkaline Phosphatase 61 U/L (39-117); Anion Gap 11 (12-20); Aspartate Amino Transferase 12 U/L (5-31); Bilirubin Total 0.5 mg/dL (0.0-1.0); Blood Urea Nitrogen 16 mg/dL (9-16); Calcium 9.7 mg/dL (8.4-10.2); Carbon Dioxide 28 mmol/L (22-29); Chloride 107 mmol/L (96-108); Estimated Glomerular Filt Rate > 60; Ethanol < 10 mg/dL; Glucose Random 95 mg/dL (60-115); Potassium 3.6 mmol/L (3.3-5.1); Sodium 142 mmol/L (135-145); Total Protein 6.5 g/dL (6.5-8.0)
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
[2024-06-30 07:50] VITALS: BP 117/63; PULSE 138; RESP 16; TEMP 36.4; O2SAT 100
[2024-06-30] MEDS: methADONE HCl 20 MG/2 ML ORAL.CONC 28 MG PO (07:55)
[2024-06-30 08:00] VITALS: BP 117/63; PULSE 138; RESP 14; TEMP 36.4
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
--- NOTE | 2024-06-30 15:40 | PM.NEUROCN ---
History of Present Illness Data of Consult Service Date: 06/30/24 Primary Care Provider: Unknown Physician HPI Reason for consult: Change in mental status 29 years old woman who was admitted on psychiatric floor with abnormal behavior with features of delusions and paranoia. I noted that she had come to emergency room in 2021 with complaints of headache bilateral hand tingling and smelling gas in her car for which no reason was found. Apparently she had complain of similar symptoms at her home while no such thing was noted by anybody else. Now she was on psych floor brought here because of abnormal behavior. Her workup revealed positive test for cocaine. Head CT was okay. When I tried to interview her she said that she was fine and wanted to leave when was not happy here. [facility] Past Medical History Medical History (Updated 06/29/24 @ 17:19 by Kiera Jennings MD) Unspecified psychosis Cocaine use No pertinent past medical history Social History Social History (Updated 06/02/24 @ 23:15 by Kiara Nunes DO) Household Members: Family Household Members Other:: father Housing: Apartment Do you presently have visiting nurse or other home services: No Patient Tobacco Use Status: Current everyday Tobacco user Tobacco use type: Cigarette Cigarettes Per Day: 10 Smoked in Last 30 Days: Yes e-Cigarette/Vaping Use: Never Used Patient Interested in Nicotine Replacement: Yes Patient Given Instructions on How to Stop Smoking: No (PT REFUSED EDUCATION) Second Hand Smoke Exposure: No Use of substances other than those prescribed or required for medical reasons: Yes Substance Use Type: Crack/Cocaine Substance Use Frequency: Weekly Last Used Substance: Unknown Currently Displaying Signs/Symptoms of Drug Intoxication Withdrawal: No Do you feel safe in your current relationship?: No Current Relationship Is there a partner from a previous relationship who is making you feel unsafe now?: No Are you made to feel afraid or neglected: No Advance Directives: No Advance Directives Information Provided: No Do you have thoughts of harming others: None Do you have a plan to hurt others: No Plan Recently lost weight without trying: Unsure How much weight loss: Unsure Eating poorly because of decreased appetite: Yes Nutrition screen score: 5 Patient : No : No Poor oral hygiene: No service: No Sexual orientation: Straight/Heterosexual Meds Allergies Allergy/AdvReac Type Severity Reaction Status Date / Time No Known Allergies Allergy Verified 06/29/24 15:40 [No Known Allergies*] Active Medications: Current Medications Acetaminophen (Acetaminophen 325 Mg Tablet) 650 mg PO Q6H PRN PRN Reason: Headache/Pain Mild Scale (1-3) Al Hydroxide/Mg Hydroxide (Magnesium Hydrox/Alum Hydrox 30 Ml Oral.Susp) 30 ml PO Q6H PRN PRN Reason: Heartburn/Nausea Hydroxyzine HCl (Hydroxyzine Hcl 25 Mg Tablet) 25 mg PO Q6H PRN PRN Reason: Anxiety Magnesium Hydroxide (Milk Of Magnesia 30 Ml Oral.Susp) 30 ml PO DAILY PRN PRN Reason: Constipation Methadone HCl (Methadone Hcl 20 Mg/2 Ml Oral.Conc) 28 mg PO DAILY ELS[facility] Last Admin: 06/30/24 07:55 Dose: 28 mg Nicotine Polacrilex (Nicotine Polacrilex 2 Mg Gum) 4 mg BUCCAL Q2H PRN PRN Reason: Nicotine Cravings Trazodone HCl (Trazodone Hcl 50 Mg Tablet) 50 mg PO BEDTIME MRX1 PRN PRN Reason: Insomnia Home Medications ?Medication ?Instructions ?Recorded ?Confirmed ?Last Taken ?Type methadone 10 mg/mL oral 28 mg PO DAILY 06/03/24 06/29/24 06/29/24 History concentrate (Methadone Intensol) Physical Exam Vital Signs: Vital Signs: Last Vital Signs Temp 97.6 F 06/30/24 08:00 Pulse 138 H 06/30/24 08:00 Resp 14 06/30/24 08:00 BP 117/63 06/30/24 08:00 Pulse Ox 100 06/30/24 07:50 O2 Del Method Room Air 06/30/24 07:50 BMI result Body Mass Index 23.4 Neuro: Other: She is alert and awake anxious woman who initially did not speak but then started to speak and answered questions appropriately. She became cooperative with exam. Affect was depressed. Face was symmetrical. Visual mcintyre are full. There was no focal weakness. Deep tendon reflexes are 1+ with flexor plantars. Balance and gait were normal. Speech was normal. Results Labs 06/29/24 20:48 06/29/24 20:48 Labs: Short CBC 06/29/24 Range/Units 20:48 WBC 5.6 (4.8-10.8) X10*3/uL Hgb 13.8 (12.0-16.0) g/dl Hct 39.7 (37.0-47.0) % Plt Count 209 (160-400) X10*3/uL BMP 06/29/24 20:48 Sodium 142 Potassium 3.6 Chloride 107 Carbon Dioxide 28 BUN 16 Creatinine 0.77 Calcium 9.7 Liver Function 06/29/24 Range/Units 20:48 Total Bilirubin 0.5 (0.0-1.0) mg/dL AST 12 (5-31) U/L ALT 11 (0-31) U/L Alkaline Phosphatase 61 (39-117) U/L Albumin 4.2 (3.5-5.0) g/dL Urine 06/29/24 Range/Units 15:44 Urine Color Dark Yellow Urine Appearance Turbid Urine pH 5.5 (5.0-9.0) Ur Specific [place] >= 1.030 H (1.005-1.025) Urine Protein 100 (2+) H (Neg-Trace) mg/dL Urine Glucose (UA) Negative (Negative) mg/dL Head CT did not reveal any significant abnormality. Microbiology Microbiology Results: Microbiology 06/29/24 16:05 Urine clean catch - Clean Catch Midstream Urine Culture - Final Strep agalactiae (Grp B) Assessment and Plan (1) Acute psychosis: Status: Acute Young woman who has been having behavioral problems for a while. Some element of her symptomatology suggested either chemical or electrical irritability of brain. My recommendation is to obtain an electroencephalogram to rule out temporal lobe seizure disorder, an MRI of brain with and without contrast if not done before, a laboratories including antinuclear antibody titer, sed rate and Lyme serology. Procedures Date of Service Date of Service: 06/30/24
[2024-06-30 20:00] VITALS: BP 114/62; PULSE 61; TEMP 36.8; O2SAT 97
[2024-07-01 08:00] VITALS: BP 111/68; PULSE 67; RESP 16; TEMP 36.9; O2SAT 95
[2024-07-01] MEDS: methADONE HCl 20 MG/2 ML ORAL.CONC 28 MG PO (08:01)
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
[2024-07-01] MEDS: gadobutroL 7.5 ML VIAL IVPUSH ×2 (19:30→19:57)
[2024-07-01 20:00] VITALS: BP 123/69; PULSE 70; RESP 15; TEMP 36.4; O2SAT 98
[2024-07-02] MEDS: methADONE HCl 20 MG/2 ML ORAL.CONC 28 MG PO (07:58)
--- NOTE | 2024-07-02 08:45 | HO.PSYCHPN ---
Subjective Subjective Date of Service: 07/02/24 Reason For Visit: sect 12 Subjective Notes: 3 Day Healthcare Proxy: No Guardianship: No Medical Problems Affecting Mental Status: No Interim History: MRI without contrast negative. Pt refusing labs recommended by Marianna Lucio, ESR Pt calling family every hour to pick her up. Parents are considering taking her home on 9.4, when her TDN expires as they are looking at other programs as she will not participate currently. Medication Compliance: No Side effects from medications: No Attending Groups: No Review of Systems Review of Systems Yes Unobtainable due to mental status Mental Status Exam Mental Status Exam Patient Appearance: Fatigued and Disheveled Patient Orientation: Person and Place Level of Consciousness: Alert Patient Behavior: Guarded, Suspicious, Anxious, Resistive to Care, Fatigued, Distractible, Confused and Good Eye Contact Mood Description: Withdrawn Affect Description: Withdrawn Patient Cognition Impaired: Yes Ability to Follow Directions: Poor Speech Pattern: Spontaneous Speech Memory Description: Remote Impaired Delusions: Paranoid Ideation and Present Perceptual Disturbances: Derealization Thought Process: Disoriented, Illogical and Slowed Thinking Thought Content: positive for Circumstantial and positive for Thought Blocking Depressive Symptoms: Diff. Making Decisions, Changes in Appetite, Significant Weight Loss, Loss of Int. in Activity, Increased Fatigue and Difficulty Concentrating Judgement: Poor Diagnostics Vital Signs (24Hr): Vital Signs - 24 hr 07/01/24 20:00 Temperature 97.5 F Pulse Rate 70 Respiratory Rate 15 Blood Pressure 123/69 Pulse Oximetry 98 BMI result Body Mass Index 23.4 Labs 06/29/24 20:48 06/29/24 20:48 Imaging Radiology Impressions: ITS Impressions Brain MRI 07/01/24 18:55 IMPRESSION: 1. No acute intracranial abnormality. 2. Redemonstrated perforation of the nasal septum. Rightward nasal septal deviation with bony spur impinging upon the right inferior nasal turbinate and right lateral nasal cavity wall. 3. Slightly reduced T1 marrow signal within the cervical spinal column which may be a normal finding in a young patient of this age however may reflect red marrow reconversion related to anemia or other pathology that can be correlated with CBC. Electronically signed by: Jazmin Rausch MD 07/01/2024 11:44 PM EDT Medications Medications Current Medications Acetaminophen (Acetaminophen 325 Mg Tablet) 650 mg PO Q6H PRN PRN Reason: Headache/Pain Mild Scale (1-3) Al Hydroxide/Mg Hydroxide (Magnesium Hydrox/Alum Hydrox 30 Ml Oral.Susp) 30 ml PO Q6H PRN PRN Reason: Heartburn/Nausea Baclofen (Baclofen 10 Mg Tablet) 10 mg PO TID PRN PRN Reason: withdrawal sx Hydroxyzine HCl (Hydroxyzine Hcl 25 Mg Tablet) 25 mg PO Q6H PRN PRN Reason: Anxiety Lorazepam (Lorazepam 1 Mg Tablet) 1 mg PO Q4H PRN PRN Reason: anxiety, agitation Magnesium Hydroxide (Milk Of Magnesia 30 Ml Oral.Susp) 30 ml PO DAILY PRN PRN Reason: Constipation Methadone HCl (Methadone Hcl 20 Mg/2 Ml Oral.Conc) 28 mg PO DAILY [facility] Last Admin: 07/02/24 07:58 Dose: 28 mg Multivitamins/Vitamin C (Multivitamin Tablet) 1 tab PO DAILY [facility] Nicotine Polacrilex (Nicotine Polacrilex 2 Mg Gum) 4 mg BUCCAL Q2H PRN PRN Reason: Nicotine Cravings Olanzapine (Olanzapine 10 Mg Tablet) 10 mg PO BEDTIME [facility] Last Admin: 07/01/24 20:49 Dose: Not Given Olanzapine (Olanzapine 5 Mg Tablet) 5 mg PO Q4H PRN PRN Reason: psychosis, agitation Trazodone HCl (Trazodone Hcl 50 Mg Tablet) 50 mg PO BEDTIME MRX1 PRN PRN Reason: Insomnia Allergies Allergies Allergy/AdvReac Type Severity Reaction Status Date / Time No Known Allergies Allergy Verified 06/29/24 15:40 [No Known Allergies*] Assessment & Plan Assessment & Plan (1) Acute psychosis: Status: Acute Code(s): F23 - Brief psychotic disorder Plan Acute Psychosis..... Plan: Admit, CV, 15 minute checks. Pt reports she is on a 12 hour hold. Declines to sign TDN Declines medications. Neuro consult Collateral contact Diagnostics 07/02/24: Encourage treatment. Signed TDN to 9.4. Asks that it be predated to 8.30 Reason for continued inpatient stay Substantial Risk for: rapid decompensation Time Spent With Patient Time: Total time managing care of this patient today ____ minutes.
[2024-07-02 09:00] VITALS: BP 130/72; PULSE 70; RESP 16; TEMP 36.5; O2SAT 96
[2024-07-02 20:00] VITALS: BP 102/58; PULSE 62; RESP 16; TEMP 36.4; O2SAT 100
[2024-07-02] MEDS: OLANZapine 10 MG TABLET PO (20:11)
[2024-07-03] MEDS: methADONE HCl 20 MG/2 ML ORAL.CONC 28 MG PO (07:41)
[2024-07-03 08:13] VITALS: BP 120/63; PULSE 59; RESP 16; TEMP 36.4; O2SAT 98
--- NOTE | 2024-07-03 10:08 | PC.NURSE ---
pt signed a 3 day notice 07/03/24, up on 07/07/24. CONTACT CENTER CONSULTANT, UR, & SW notified via voicemail
--- NOTE | 2024-07-03 12:46 | PC.NURSE ---
Left msg w/ MRI Dept. There is an order for MRI w/ contrast that has not been performed yet. Provider CAW aware
--- NOTE | 2024-07-03 16:14 | HO.PSYCHPN ---
Subjective Subjective Date of Service: 07/03/24 Reason For Visit: sect 12 Subjective Notes: 3 Day Healthcare Proxy: No Guardianship: No Medical Problems Affecting Mental Status: No Interim History: Met with pt and father. Pt with some improvement. Oriented to person, place, date 06/22, president-[employer]. She is guarded, not wanting to discuss any treatment topics, I will talk with my father about that in the privacy of our own home. Continues to refuse treatment. Parents are undecided if they want to proceed with Section 7. They want pt in a structured educational group program for longer term treatment. Mother has options she is pleased with, so we will most likely discharge to parents care on 07/06. Medication Compliance: No Side effects from medications: No Attending Groups: No Review of Systems Acute medical concerns: No Medical Review of Systems: unchanged Review of Systems Review of Systems Yes Unobtainable due to mental status Mental Status Exam Mental Status Exam Patient Appearance: Fatigued and Disheveled Patient Orientation: Person and Place Level of Consciousness: Alert Patient Behavior: Guarded, Suspicious, Anxious, Resistive to Care, Fatigued, Distractible, Confused and Good Eye Contact Mood Description: Withdrawn Affect Description: Withdrawn Patient Cognition Impaired: Yes Ability to Follow Directions: Poor Speech Pattern: Spontaneous Speech Memory Description: Remote Impaired Delusions: Paranoid Ideation and Present Perceptual Disturbances: Derealization Thought Process: Disoriented, Illogical and Slowed Thinking Thought Content: positive for Circumstantial and positive for Thought Blocking Depressive Symptoms: Diff. Making Decisions, Changes in Appetite, Significant Weight Loss, Loss of Int. in Activity, Increased Fatigue and Difficulty Concentrating Judgement: Poor Diagnostics Vital Signs (24Hr): Vital Signs - 24 hr 07/02/24 20:00 07/03/24 08:13 Temperature 97.6 F 97.6 F Pulse Rate 62 59 Respiratory Rate 16 16 Blood Pressure 102/58 L 120/63 Pulse Oximetry 100 98 Oxygen Delivery Method Room Air Room Air BMI result Body Mass Index 23.4 Labs 06/29/24 20:48 06/29/24 20:48 Imaging Radiology Impressions: ITS Impressions Brain MRI 07/01/24 18:55 IMPRESSION: 1. No acute intracranial abnormality. 2. Redemonstrated perforation of the nasal septum. Rightward nasal septal deviation with bony spur impinging upon the right inferior nasal turbinate and right lateral nasal cavity wall. 3. Slightly reduced T1 marrow signal within the cervical spinal column which may be a normal finding in a young patient of this age however may reflect red marrow reconversion related to anemia or other pathology that can be correlated with CBC. Electronically signed by: Jazmin Rausch MD 07/01/2024 11:44 PM EDT Medications Medications Current Medications Acetaminophen (Acetaminophen 325 Mg Tablet) 650 mg PO Q6H PRN PRN Reason: Headache/Pain Mild Scale (1-3) Al Hydroxide/Mg Hydroxide (Magnesium Hydrox/Alum Hydrox 30 Ml Oral.Susp) 30 ml PO Q6H PRN PRN Reason: Heartburn/Nausea Baclofen (Baclofen 10 Mg Tablet) 10 mg PO TID PRN PRN Reason: withdrawal sx Hydroxyzine HCl (Hydroxyzine Hcl 25 Mg Tablet) 25 mg PO Q6H PRN PRN Reason: Anxiety Lorazepam (Lorazepam 1 Mg Tablet) 1 mg PO Q4H PRN PRN Reason: anxiety, agitation Magnesium Hydroxide (Milk Of Magnesia 30 Ml Oral.Susp) 30 ml PO DAILY PRN PRN Reason: Constipation Methadone HCl (Methadone Hcl 20 Mg/2 Ml Oral.Conc) 28 mg PO DAILY [facility] Last Admin: 07/03/24 07:41 Dose: 28 mg Multivitamins/Vitamin C (Multivitamin Tablet) 1 tab PO DAILY [facility] Last Admin: 07/03/24 09:40 Dose: Not Given Nicotine Polacrilex (Nicotine Polacrilex 2 Mg Gum) 4 mg BUCCAL Q2H PRN PRN Reason: Nicotine Cravings Olanzapine (Olanzapine 10 Mg Tablet) 10 mg PO BEDTIME [facility] Last Admin: 07/02/24 20:11 Dose: 10 mg Olanzapine (Olanzapine 5 Mg Tablet) 5 mg PO Q4H PRN PRN Reason: psychosis, agitation Trazodone HCl (Trazodone Hcl 50 Mg Tablet) 50 mg PO BEDTIME MRX1 PRN PRN Reason: Insomnia Allergies Allergies Allergy/AdvReac Type Severity Reaction Status Date / Time No Known Allergies Allergy Verified 06/29/24 15:40 [No Known Allergies*] Assessment & Plan Assessment & Plan (1) Acute psychosis: Status: Acute Code(s): F23 - Brief psychotic disorder Plan Acute Psychosis..... Plan: Admit, CV, 15 minute checks. Pt reports she is on a 12 hour hold. Declines to sign TDN Declines medications. Neuro consult Collateral contact Diagnostics 07/03- Encourage treatment. Reason for continued inpatient stay Substantial Risk for: rapid decompensation Time Spent With Patient Time: Total time managing care of this patient today ____ minutes.
[2024-07-03 20:00] VITALS: BP 121/57; PULSE 81; RESP 16; TEMP 36.8; O2SAT 99
[2024-07-04] MEDS: methADONE HCl 20 MG/2 ML ORAL.CONC 28 MG PO (07:44)
[2024-07-04 07:53] VITALS: BP 115/68; PULSE 65; RESP 16; TEMP 37.1; O2SAT 96
--- NOTE | 2024-07-04 08:33 | P.PNPSI_ITS ---
Subjective Subjective Date of Service: 07/04/24 Reason For Visit: sect 12 Subjective Notes: Conditional Voluntary and 3 Day Healthcare Proxy: No Guardianship: No Medical Problems Affecting Mental Status: No Interim History: TDN to 9.4. Message from father who would like a review of treatment, approach, program schedule. Mother presented this evening stating she was guardian and wanting to discharge pt immediately. This was denied as we do not have appropriate paperwork. Mother was told of TDN. Pt is not wanting any treatment. Parents appear to not want to have her continue treatment at [facility]. They will need family consult to come to a consensus and safely plan for pt's discharge. Medication Compliance: No Side effects from medications: No Attending Groups: No Review of Systems Acute medical concerns: No Medical Review of Systems: unchanged Review of Systems Review of Systems Yes all other systems are reviewed and are negative Mental Status Exam Mental Status Exam Patient Appearance: Fatigued Patient Orientation: Person and Place Level of Consciousness: Alert Patient Behavior: Guarded, Suspicious, Anxious, Resistive to Care, Distractible, Confused and Good Eye Contact Mood Description: Withdrawn Affect Description: Withdrawn Patient Cognition Impaired: Yes Ability to Follow Directions: Fair Speech Pattern: Spontaneous Speech Memory Description: Remote Impaired Thought Process: Illogical and Slowed Thinking Thought Content: positive for Circumstantial Depressive Symptoms: Diff. Making Decisions, Changes in Appetite, Significant Weight Loss, Loss of Int. in Activity and Difficulty Concentrating Judgement: Poor Diagnostics Vital Signs (24Hr): Vital Signs - 24 hr 07/03/24 20:00 07/04/24 07:53 Temperature 98.3 F 98.7 F Pulse Rate 81 65 Respiratory Rate 16 16 Blood Pressure 121/57 L 115/68 Pulse Oximetry 99 96 Oxygen Delivery Method Room Air Room Air BMI result Body Mass Index 23.4 Labs 06/29/24 20:48 06/29/24 20:48 Imaging Radiology Impressions: ITS Impressions Brain MRI 07/01/24 18:55 IMPRESSION: 1. No acute intracranial abnormality. 2. Redemonstrated perforation of the nasal septum. Rightward nasal septal deviation with bony spur impinging upon the right inferior nasal turbinate and right lateral nasal cavity wall. 3. Slightly reduced T1 marrow signal within the cervical spinal column which may be a normal finding in a young patient of this age however may reflect red marrow reconversion related to anemia or other pathology that can be correlated with CBC. Electronically signed by: Jazmin Rausch MD 07/01/2024 11:44 PM EDT RP Medications Medications Current Medications Acetaminophen (Acetaminophen 325 Mg Tablet) 650 mg PO Q6H PRN PRN Reason: Headache/Pain Mild Scale (1-3) Al Hydroxide/Mg Hydroxide (Magnesium Hydrox/Alum Hydrox 30 Ml Oral.Susp) 30 ml PO Q6H PRN PRN Reason: Heartburn/Nausea Baclofen (Baclofen 10 Mg Tablet) 10 mg PO TID PRN PRN Reason: withdrawal sx Hydroxyzine HCl (Hydroxyzine Hcl 25 Mg Tablet) 25 mg PO Q6H PRN PRN Reason: Anxiety Lorazepam (Lorazepam 1 Mg Tablet) 1 mg PO Q4H PRN PRN Reason: anxiety, agitation Magnesium Hydroxide (Milk Of Magnesia 30 Ml Oral.Susp) 30 ml PO DAILY PRN PRN Reason: Constipation Methadone HCl (Methadone Hcl 20 Mg/2 Ml Oral.Conc) 28 mg PO DAILY [facility] Last Admin: 07/04/24 07:44 Dose: 28 mg Multivitamins/Vitamin C (Multivitamin Tablet) 1 tab PO DAILY [facility] Last Admin: 07/04/24 08:13 Dose: Not Given Nicotine Polacrilex (Nicotine Polacrilex 2 Mg Gum) 4 mg BUCCAL Q2H PRN PRN Reason: Nicotine Cravings Olanzapine (Olanzapine 10 Mg Tablet) 10 mg PO BEDTIME [facility] Last Admin: 07/03/24 21:31 Dose: Not Given Olanzapine (Olanzapine 5 Mg Tablet) 5 mg PO Q4H PRN PRN Reason: psychosis, agitation Trazodone HCl (Trazodone Hcl 50 Mg Tablet) 50 mg PO BEDTIME MRX1 PRN PRN Reason: Insomnia Allergies Allergies Allergy/AdvReac Type Severity Reaction Status Date / Time No Known Allergies Allergy Verified 06/29/24 15:40 [No Known Allergies*] Assessment & Plan Assessment & Plan (1) Acute psychosis: Status: Acute Code(s): F23 - Brief psychotic disorder Plan Acute Psychosis..... Plan: Admit, CV, 15 minute checks. Pt reports she is on a 12 hour hold. Declines to sign TDN Declines medications. Neuro consult Collateral contact Diagnostics 07/04- TDN to 9.4 It appears parents want to take pt home and transition her to another treatment program. Family work will be needed. Reason for continued inpatient stay Substantial Risk for: rapid decompensation Time Spent With Patient Time: Total time managing care of this patient today ____ minutes.
[2024-07-04 19:46] VITALS: BP 122/75; PULSE 59; RESP 16; TEMP 36.6; O2SAT 99
--- NOTE | 2024-07-05 | EEG_ITS ---
This is a 16 channel EEG with an EKG lead. Patient is awake during the tracing. Background EEG rhythm is 7 to 8 hertz 5 to 20 microvolt posteriorly and lower amplitude fast anteriorly. Photic stimulation does not produce any significant abnormality. Hyperventilation is not performed. No sharp wave spikes or paroxysmal tendency noted. IMPRESSION: Mild slowing, otherwise no significant abnormality. No epileptic tendency noted. MD SHABBIR Daniels/ROSA / [id number]
[2024-07-05] MEDS: methADONE HCl 20 MG/2 ML ORAL.CONC 28 MG PO (07:50)
[2024-07-05 08:00] VITALS: BP 103/67; PULSE 68; RESP 18; TEMP 36.7; O2SAT 100
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
[2024-07-05 20:00] VITALS: BP 116/72; PULSE 62; RESP 17; TEMP 36.5; O2SAT 99
[2024-07-06 08:00] VITALS: BP 107/63; PULSE 62; RESP 18; TEMP 36.9; O2SAT 99
[2024-07-06] MEDS: methADONE HCl 20 MG/2 ML ORAL.CONC 28 MG PO (08:10)
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
[2024-07-06 19:35] VITALS: BP 100/59; PULSE 64; RESP 16; TEMP 36.8; O2SAT 99
[2024-07-07] MEDS: methADONE HCl 20 MG/2 ML ORAL.CONC 28 MG PO (07:53)
[2024-07-07 08:00] VITALS: BP 118/56; PULSE 60; RESP 16; TEMP 36.8; O2SAT 98
--- NOTE | 2024-07-07 12:31 | P.DS_ITS ---
DS: Providers Provider Date of Service: 07/07/24 Date of admission: 06/29/24 21:13 Date of discharge: 07/07/24 Primary care physician: Unknown Physician Admitting clinician: Su Pierre Attending physician on admission: Drew Cartagena Consults: 06/30/24 11:59 Consult to Neurology Routine Consulting Provider: [facility] Reason for consultation: MSE change,memory loss,loss of ability to write- parents request Has provider been notified: No Attending physician on discharge: Drew Cartagena Discharging clinician: Su Pierre DS: Diagnosis Discharge Diagnosis (1) Acute psychosis: Status: Acute (2) TBI (traumatic brain injury): Status: Acute DS: Medications Discharge Medications Home Medications: Home Medications ?Medication ?Instructions ?Recorded ?Confirmed methadone 10 mg/mL oral 28 mg PO DAILY 06/03/24 06/29/24 concentrate (Methadone Intensol) Previous Rx's ?Medication ?Instructions ?Recorded amoxicillin 250 mg/5 mL oral 500 mg (10 mL) PO TID #150 mL 07/07/24 suspension olanzapine 10 mg tablet 10 mg PO BEDTIME #14 tabs 07/07/24 Mental Status Exam Mental Status Exam Narrative: Pt is alert and oriented; behavior is cooperative, friendly and calm; patient is not in distress; dressed in casual attire with unkempt hair but adequate hygiene; mood is described as fine and affect congruent; eye contact appropriate; Speech is normal rate, volume and prosody and not pressured; psychomotor retardation present (pt lies in bed all day); thought process is goal directed; Thought content is on discharge and that she has no psychiatric illness; does not reveal other thought content; denies any SI/HI. Denies AVH; no clear evidence of internal preoccupation. Patients insight and judgment impaired Data Data Completed and Pending Completed studies during hospitalization [Text1]: 06/29/24 16:05 Urine clean catch - Clean Catch Midstream Urine Culture - Final Strep agalactiae (Grp B) Imaging Diagnostic Imaging Impressions Brain MRI 07/01/24 18:55 IMPRESSION: 1. No acute intracranial abnormality. 2. Redemonstrated perforation of the nasal septum. Rightward nasal septal deviation with bony spur impinging upon the right inferior nasal turbinate and right lateral nasal cavity wall. 3. Slightly reduced T1 marrow signal within the cervical spinal column which may be a normal finding in a young patient of this age however may reflect red marrow reconversion related to anemia or other pathology that can be correlated with CBC. Electronically signed by: Jazmin Rausch MD 07/01/2024 11:44 PM EDT DS: Summary Hospital Course Hospital Course: Admission to adult psychiatry for exacerbation of acute psychosis, polysubstance use disorder. TBI 12/26 without treatment as pt refused. Recent discharge from [facility] on a three day notice. Pt declined all interventions. She signed a three day notice on admit. Several contacts with her parents. Mother has applied for guardianship and will go to court on 07/19/24. Father reports after recent discharge pt has been given $100/day and has spent this on gas (driving ~150 miles daily), cigarettes and unknown. Both parents describe disorientation, which improved as pt's stay progressed, going into community without clothing on, delusional thought process, bizarre behaviors, bizarre driving, involving police and memory loss. Neurology was consulted. Diagnostics were completed. MRI with contrast results were delayed as [facility] did not read it immediately. It was discussed with parents filing a Section 7. Both declined as pt was uncomfortable on the unit, would not interact with the team and felt her rights were infringed given restrictions on cell phone use and inability to smoke on the unit. Parents were told pt refused medications, including Rx for UTI-this Rx was given upon discharge and parents will encourage compliance. Pt was discharged to parents care with a plan to follow up with [facility] Neu[facility] upon discharge and parents choice of [facility] for psychiatric treatment as she will be able to use her cell phone and smoke there. Parents were welcomed to return if these plans were not successful for pt. Status at Discharge Functional status at discharge: independent ambulation Overall status at discharge: patient is not back to baseline Time Spent with Patient Time attestation: Total time managing care of this patient today ____ minutes. Time spent: Greater than 30 minutes Discharge Plan Discharge Anticipated Discharge Date/Time: 07/07/24 12:00 Patient Disposition: Home, Self-Care Discharge Diagnosis: Acute Psychosis History of TBI Polysubstance Use Disorder [facility]: [facility] [Other] - 3-5 Days (Follow up with your counselor. ) [facility] ([facility]) [Other] (You can walk-in and get a same day intake appt for therapy and psychiatry. ) [facility] ([facility]) [Other] (Walk-in same day intake appt for therapy and psychiatry. M-F, 8-8 Sat, 9-5) [facility] [Other] (We called your provider and left a message. They will be reaching out to schedule an appointment with you.) Discharge Medications: New olanzapine 10 mg Tablet 10 mg PO BEDTIME Qty: 14 0RF amoxicillin 250 mg/5 mL suspension for reconstitution 500 mg PO TID Qty: 150 0RF Continued methadone [Methadone Intensol] 10 mg/mL Concentrate 28 mg PO DAILY Discharge Orders: Discharge Order (Routine); Ordered 07/07/24 Ordered By: Su Pierre Diet: Advance to usual diet Activity on Discharge: As tolerated Stand Alone Forms: Patient Portal Discharge page, Community Support Print Language: [place] Care Plan Goals: Mood and Behavioral Stabilization Abstinence from Substances Health Concerns: Mood and Behavioral Stabilization Abstinence from Substances Plan of Treatment: Violette's parents will assist her in follow up. She has declined testing ordered by Dr. David to rule out neurological etiologies of symptoms Parents will provide care and supervision A small amount of Olanzapine is sent to her pharmacy for treatment of symptoms We suggest no driving, consistent supervision, and ongoing treatment. Pt's mother has applied for guardianship-we have received preliminary paperwork, however there is no court date scheduled. Assessment: Discharge on a three day notice of intent. Discharge Date/Time: 07/07/24 12:24
--- NOTE | 2024-10-06 08:27 | PM.EVENT ---
Documented by User: Su Pierre APRN 10/06/24 08:39 Event Note Date of Service: 10/06/24 Event Note: Pt's parents requested to meet to discuss concerns about pt's current condition. Met with both parents who report pt has refused all medical, psychiatric, neurological care/consultation since her last discharge. Police have taken her license. They report significant weight loss, symptoms of possible psychosis and catatonia at times, confusion, depression, sx of dissociation and disclosure of trauma. Discussed community resources and interventions, crisis team access and ER eval. Mother reports she currently has guardianship and both parents discussed bringing pt in for eval for admission. They will discuss with the family and attempt out pt interventions as a primary goal before bringing pt to hospital. Of note, when pt has taken medications given upon discharge, both note improvement in symptoms which was discussed. Parents will call/present with pt if needed. Time Spent With Patient Time: Total time managing care of this patient today ____ minutes. Documented by User: Drew Cartagena MD 10/06/24 10:56 Event Note Date of Service: 10/06/24
== END 2024-07-07 12:24 | disposition home or self-care (01) | DRG 751 ==
LOC: HO.ED 17:19 → HO.PM5 21:19
PROVIDERS: Admitting Provider Psychiatry & Neurology Psychiatry; Emergency Provider Emergency Medicine; Visit Provider Clinical Nurse Specialist Psychiatric/Mental Health, Adult
DX: F23 Brief psychotic disorder (principal); F11.20 Opioid dependence, uncomplicated; F17.210 Nicotine dependence, cigarettes, uncomplicated; F19.90 Other psychoactive substance use, unspecified, uncomplicated; Z71.6 Tobacco abuse counseling; Z79.899 Other long term (current) drug therapy
CPT/HCPCS: 36415; 70551; 70553; 80053; 80307; 81001; 81025; 85025; 87086; 87147; 95816; 99285; A9585

== ENCOUNTER → 2024-06-29 21:13 | Outpatient (BNV) | payer OTHER, SELFPAY | PROVIDERS: Admitting Provider Psychiatry & Neurology Psychiatry; Emergency Provider Emergency Medicine; Visit Provider Psychiatry & Neurology Neurology | DX: F23 Brief psychotic disorder (principal) | CPT/HCPCS: 99222 ==

== ENCOUNTER → 2024-06-29 21:13 | Outpatient (BNV) | payer OTHER, SELFPAY | PROVIDERS: Admitting Provider Psychiatry & Neurology Psychiatry; Emergency Provider Emergency Medicine; Visit Provider Clinical Nurse Specialist Psychiatric/Mental Health, Adult | DX: F23 Brief psychotic disorder (principal); S06.9XAA Unspecified intracranial injury with loss of consciousness status unknown, initial encounter | CPT/HCPCS: 90792; 99231; 99232; 99238; 99499 ==